=== PATIENT | female | born 1980 | race Two or more races ===

== ENCOUNTER 2021-03-11 16:00 | Observation (INO) | payer SELFPAY ==
[~2021-03-11] VITALS: Ht 152.4 cm; Wt 64.0 kg
== END 2021-03-11 17:35 | disposition home or self-care (01) ==
LOC: LDRP 16:00
PROVIDERS: ADMIT Obstetrics & Gynecology; ATTEND Obstetrics & Gynecology
DX: O42.912 Preterm premature rupture of membranes, unspecified as to length of time between rupture and onset of labor, second trimester (principal); Z3A.18 18 weeks gestation of pregnancy
CPT/HCPCS: 81002; 84112; G0378; G0379; Q0114

== ENCOUNTER 2021-05-08 13:30 | Observation (INO) | payer MEDICAID ==
[~2021-05-08] VITALS: Ht 165.1 cm; Wt 65.3 kg
[2021-05-08] MEDS: TERBUTALINE SULFATE 1 MG/ML 1ML VIAL SC SCH ×2 (15:00→15:34)
[2021-05-08] MEDS ORDERED: PREN-129 OR (15:33)
== END 2021-05-08 16:17 | disposition home or self-care (01) ==
LOC: LDRP 13:30
PROVIDERS: ADMIT Obstetrics & Gynecology; ATTEND Obstetrics & Gynecology
DX: O62.9 Abnormality of forces of labor, unspecified (principal); O26.893 Other specified pregnancy related conditions, third trimester; N89.8 Other specified noninflammatory disorders of vagina; R10.9 Unspecified abdominal pain; Z3A.28 28 weeks gestation of pregnancy
CPT/HCPCS: 59025; 76815; 81002; 96372; G0378; G0379; J3105

== ENCOUNTER 2021-05-12 11:24 | Observation (INO) | payer MEDICAID ==
[~2021-05-12] VITALS: Ht 154.9 cm; Wt 65.3 kg
[~2021-05-12 11:24] MED LIST: PREN-129 OR
[2021-05-12] MEDS ORDERED: NIF10C GT (11:52)
[2021-05-12] MEDS: TERBUTALINE SULFATE 1 MG/ML 1ML VIAL SC SCH ×2 (12:02→12:08)
== END 2021-05-12 12:42 | disposition home or self-care (01) ==
LOC: LDRP 11:24
PROVIDERS: ADMIT Obstetrics & Gynecology; ATTEND Obstetrics & Gynecology
DX: O60.03 Preterm labor without delivery, third trimester (principal); O34.63 Maternal care for abnormality of vagina, third trimester; N89.8 Other specified noninflammatory disorders of vagina; Z3A.29 29 weeks gestation of pregnancy
CPT/HCPCS: 59025; 81002; 96372; G0378; G0379; J3105

== ENCOUNTER 2021-05-19 10:24 | Observation (INO) | payer MEDICAID ==
[~2021-05-19] VITALS: Ht 152.4 cm; Wt 65.3 kg
[2021-05-19] MEDS ORDERED: NIF10C PO (11:52)
[2021-05-19] MEDS ORDERED: NIFEdipine 10 MG CAP PO ONE (16:50)
[2021-05-19] MEDS ORDERED: TERBUTALINE SULFATE 1 MG/ML 1ML VIAL SC SCH (17:00)
== END 2021-05-19 17:43 | disposition home or self-care (01) ==
LOC: LDRP 16:23
PROVIDERS: ADMIT Obstetrics & Gynecology; ATTEND Obstetrics & Gynecology
DX: O60.03 Preterm labor without delivery, third trimester (principal); O62.9 Abnormality of forces of labor, unspecified; Z3A.30 30 weeks gestation of pregnancy
CPT/HCPCS: 59025; 81002; 94760; 96372; G0378; G0379; J3105

== ENCOUNTER 2021-05-22 16:51 | Observation (INO) | payer MEDICAID ==
[~2021-05-22] VITALS: Ht 154.9 cm; Wt 65.3 kg
[~2021-05-22 16:51] MED LIST changes: +NIF10C PO
[2021-05-22] MEDS ORDERED: PROG1CAP2 VG (17:39)
[2021-05-22] MEDS ORDERED: BETAMETHASONE ACET (30mg/5ml) 5ml Vial 6mg/ml IM ONE (17:45)
[2021-05-22] MEDS ORDERED: TERBUTALINE SULFATE 1 MG/ML 1ML VIAL SC SCH (17:45)
== END 2021-05-22 19:18 | disposition home or self-care (01) ==
LOC: LDRP 16:51
PROVIDERS: ADMIT Obstetrics & Gynecology; ATTEND Obstetrics & Gynecology
DX: O60.03 Preterm labor without delivery, third trimester (principal); O62.9 Abnormality of forces of labor, unspecified; O26.893 Other specified pregnancy related conditions, third trimester; N89.8 Other specified noninflammatory disorders of vagina; Z3A.30 30 weeks gestation of pregnancy
CPT/HCPCS: 59025; 76815; 81002; 94760; 96372; G0378; G0379; J0702; J3105

== ENCOUNTER 2021-05-23 16:30 | Observation (INO) | payer MEDICAID ==
[~2021-05-23] VITALS: Ht 154.9 cm; Wt 65.3 kg
[~2021-05-23 16:30] MED LIST changes: +PROG1CAP2 VG
[2021-05-23] MEDS ORDERED: BETAMETHASONE ACET (30mg/5ml) 5ml Vial 6mg/ml IM ONE (17:00)
[2021-05-23] MEDS ORDERED: TERBUTALINE SULFATE 1 MG/ML 1ML VIAL SC SCH (17:30)
== END 2021-05-23 18:41 | disposition home or self-care (01) ==
LOC: LDRP 16:30
PROVIDERS: ADMIT Obstetrics & Gynecology; ATTEND Obstetrics & Gynecology
DX: O60.03 Preterm labor without delivery, third trimester (principal); O62.9 Abnormality of forces of labor, unspecified; O26.893 Other specified pregnancy related conditions, third trimester; R10.2 Pelvic and perineal pain; Z3A.30 30 weeks gestation of pregnancy
CPT/HCPCS: 59025; 81002; 94760; 96372; G0378; G0379; J3105

== ENCOUNTER 2021-05-25 10:16 | Observation (INO) | payer MEDICAID | END 2021-05-25 14:25 | disposition home or self-care (01) | LOC: LDRP 11:56 | PROVIDERS: ADMIT Obstetrics & Gynecology Obstetrics; ATTEND Obstetrics & Gynecology Obstetrics | DX: O62.9 Abnormality of forces of labor, unspecified (principal); O60.03 Preterm labor without delivery, third trimester; Z3A.30 30 weeks gestation of pregnancy | CPT/HCPCS: 59025; 76815; 81002; 94760; G0378; G0379 ==

== ENCOUNTER 2021-05-27 14:17 | Observation (INO) | payer MEDICAID ==
[~2021-05-27] VITALS: Ht 152.4 cm; Wt 65.3 kg
== END 2021-05-27 18:34 | disposition home or self-care (01) ==
LOC: LDRP 16:11
PROVIDERS: ADMIT Obstetrics & Gynecology; ATTEND Obstetrics & Gynecology
DX: O60.03 Preterm labor without delivery, third trimester (principal); O34.63 Maternal care for abnormality of vagina, third trimester; N89.8 Other specified noninflammatory disorders of vagina; Z3A.31 31 weeks gestation of pregnancy
CPT/HCPCS: 59025; 76818; 81002; 94760; G0378; G0379

== ENCOUNTER 2021-05-28 08:27 | Observation (INO) | payer MEDICAID ==
[~2021-05-28] VITALS: Ht 154.9 cm; Wt 66.2 kg
[2021-06-03] MEDS: TERBUTALINE SULFATE 1 MG/ML 1ML VIAL SC SCH ×2 (15:26→15:48)
== END 2021-06-03 16:58 | disposition home or self-care (01) ==
LOC: LDRP 06-03 14:42
PROVIDERS: ADMIT Obstetrics & Gynecology; ATTEND Obstetrics & Gynecology
DX: O60.03 Preterm labor without delivery, third trimester (principal); O62.9 Abnormality of forces of labor, unspecified; Z3A.32 32 weeks gestation of pregnancy
CPT/HCPCS: 59025; 81002; 94760; 96372; G0378; J3105

== ENCOUNTER 2021-06-06 15:20 | Observation (INO) | payer MEDICAID | END 2021-06-06 17:22 | disposition home or self-care (01) | LOC: LDRP 15:20 | PROVIDERS: ADMIT Obstetrics & Gynecology; ATTEND Obstetrics & Gynecology | DX: O47.03 False labor before 37 completed weeks of gestation, third trimester (principal); Z3A.32 32 weeks gestation of pregnancy | CPT/HCPCS: 59025; 81002; 94760; G0378 ==

== ENCOUNTER 2021-06-10 14:40 | Observation (INO) | payer MEDICAID ==
[2021-06-10] MEDS ORDERED: TERBUTALINE SULFATE 1 MG/ML 1ML VIAL SC SCH (15:45)
== END 2021-06-10 16:45 | disposition home or self-care (01) ==
LOC: LDRP 14:40
PROVIDERS: ADMIT Obstetrics & Gynecology; ATTEND Obstetrics & Gynecology
DX: O60.03 Preterm labor without delivery, third trimester (principal); O62.9 Abnormality of forces of labor, unspecified; Z3A.33 33 weeks gestation of pregnancy
CPT/HCPCS: 59025; 81002; 94760; 96372; G0378; G0379; J3105

== ENCOUNTER 2021-06-15 07:31 | Observation (INO) | payer MEDICAID | END 2021-06-15 16:24 | disposition home or self-care (01) | LOC: LDRP 14:43 | PROVIDERS: ADMIT Obstetrics & Gynecology Obstetrics; ATTEND Obstetrics & Gynecology Obstetrics | DX: O60.03 Preterm labor without delivery, third trimester (principal); Z3A.33 33 weeks gestation of pregnancy | CPT/HCPCS: 59025; 81002; 94760; G0378 ==

== ENCOUNTER 2021-06-18 07:27 | Observation (INO) | payer MEDICAID | END 2021-06-18 11:20 | disposition home or self-care (01) | LOC: LDRP 10:36 | PROVIDERS: ADMIT Obstetrics & Gynecology; ATTEND Obstetrics & Gynecology | DX: O60.03 Preterm labor without delivery, third trimester (principal); Z3A.34 34 weeks gestation of pregnancy | CPT/HCPCS: 59025; 81002; G0378; G0379 ==

== ENCOUNTER 2021-06-22 08:43 | Observation (INO) | payer MEDICAID | END 2021-06-22 13:08 | disposition home or self-care (01) | LOC: LDRP 12:34 | PROVIDERS: ADMIT Obstetrics & Gynecology Obstetrics; ATTEND Obstetrics & Gynecology Obstetrics | DX: O47.03 False labor before 37 completed weeks of gestation, third trimester (principal); Z3A.35 35 weeks gestation of pregnancy | CPT/HCPCS: 59025; 81002; G0378 ==

== ENCOUNTER 2021-06-25 14:25 | Observation (INO) | payer MEDICAID | END 2021-06-25 15:20 | disposition home or self-care (01) | LOC: LDRP 14:25 | PROVIDERS: ADMIT Obstetrics & Gynecology; ATTEND Obstetrics & Gynecology | DX: O60.03 Preterm labor without delivery, third trimester (principal); O24.419 Gestational diabetes mellitus in pregnancy, unspecified control; O62.9 Abnormality of forces of labor, unspecified; Z3A.35 35 weeks gestation of pregnancy | CPT/HCPCS: 59025; 81002; G0378; G0379 ==

== ENCOUNTER 2021-06-29 08:31 | Observation (INO) | payer MEDICAID | END 2021-06-29 15:56 | disposition home or self-care (01) | LOC: LDRP 14:30 | PROVIDERS: ADMIT Obstetrics & Gynecology Obstetrics; ATTEND Obstetrics & Gynecology Obstetrics | DX: O60.03 Preterm labor without delivery, third trimester (principal); Z3A.35 35 weeks gestation of pregnancy | CPT/HCPCS: 59025; 81002; 94760; G0378; G0379 ==

== ENCOUNTER 2021-07-02 13:05 | Observation (INO) | payer MEDICAID ==
[2021-07-02 15:31] LABS: Basophils # (auto) 0.1 10 ^3/uL (0-0.2); Basophils % (auto) 1.3 % (0.0-2.0); Eosinophils # (auto) 0.1 10 ^3/uL (0-0.8); Eosinophils % (auto) 1.2 % (0.0-7.0); Hematocrit 36.4 % (36.0-46.0); Hemoglobin 12.5 g/dL (12.2-16.2); Lymphocytes # (auto) 0.9 10 ^3/uL (0.4-5.4); Lymphocytes % (auto) 15.1 % (10.0-50.0); Mean Corpuscular Hemoglobin 31.5 pg (28.0-32.0); Mean Corpuscular Hgb Conc. 34.3 g/dL (32.0-36.0); Mean Corpuscular Volume 91.8 fL (80.0-100.0); Monocytes # (auto) 0.5 10 ^3/uL (0-1.3); Monocytes % (auto) 7.6 % (0.0-12.0); Neutrophils # (auto) 4.5 10 ^3/uL (1.6-8.6); Neutrophils % (auto) 74.8 % (37.0-80.0); Nucleated Red Blood Cells % 0.1 %; Red Blood Cells 3.96 10^6/uL (4.0-5.20); Red Cell Distribution Width 13.2 % (11.8-14.3)
[2021-07-02 15:45] LABS: INR 0.88 (0.9-1.15); Partial Thromboplastin Time 28.3 sec (23.6-33.0)
[2021-07-02 15:53] LABS: Albumin 2.2 g/dL (3.4-5.0); Calcium 8.1 mg/dL (8.5-10.1); Potassium 3.5 mmol/L (3.5-5.1)
[2021-07-02 15:56] LABS: Bilirubin, Total 0.2 mg/dL (0.2-1.0); Total Protein 6.3 g/dL (6.4-8.2)
[2021-07-02 16:13] LABS: Urine Bacteria MANY /hpf (None Seen); Urine Blood Negative /uL (Negative); Urine Specific Gravity 1.006 (1.001-1.035); Urine WBC 6 /hpf (0 - 5)
[2021-07-02 17:19] LABS: Protein, Urine 6.9 mg/dL (0.0-11.9)
[2021-07-03 07:06] LABS: RPR Non Reactive (Non Reactive)
[2021-07-05] MEDS ORDERED: LABE100T4 PO (11:30)
== END 2021-07-02 17:20 | disposition home or self-care (01) ==
LOC: LDRP 13:05
PROVIDERS: ADMIT Obstetrics & Gynecology; ATTEND Obstetrics & Gynecology
DX: O24.419 Gestational diabetes mellitus in pregnancy, unspecified control (principal); Z20.822 Contact with and (suspected) exposure to COVID-19; Z3A.36 36 weeks gestation of pregnancy; Z79.899 Other long term (current) drug therapy; Z98.890 Other specified postprocedural states
CPT/HCPCS: 36415; 59025; 76818; 80053; 81001; 81002; 82570; 83036; 84156; 84550; 85025; 85610; 85730; 86592; 87426; G0378

== ENCOUNTER 2021-07-08 09:24 | Observation (INO) | payer MEDICAID ==
[~2021-07-08 09:24] MED LIST changes: +LABE100T4 PO; -NIF10C PO; -PROG1CAP2 VG
== END 2021-07-08 11:47 | disposition home or self-care (01) ==
LOC: LDRP 09:24
PROVIDERS: ADMIT Obstetrics & Gynecology; ATTEND Obstetrics & Gynecology
DX: O13.3 Gestational [pregnancy-induced] hypertension without significant proteinuria, third trimester (principal); O99.891 Other specified diseases and conditions complicating pregnancy; M54.59 Other low back pain; Z3A.37 37 weeks gestation of pregnancy
CPT/HCPCS: 59025; 76818; 81002; 94760; G0378

== ENCOUNTER 2021-07-11 08:08 | Observation (INO) | payer MEDICAID | END 2021-07-11 10:35 | disposition home or self-care (01) | LOC: LDRP 08:08 | PROVIDERS: ADMIT Obstetrics & Gynecology; ATTEND Obstetrics & Gynecology | DX: O13.3 Gestational [pregnancy-induced] hypertension without significant proteinuria, third trimester (principal); Z3A.37 37 weeks gestation of pregnancy | CPT/HCPCS: 59025; 76818; 81002; 94760; G0378; G0379 ==

== ENCOUNTER 2021-07-14 08:29 | Observation (INO) | payer MEDICAID ==
[~2021-07-14] VITALS: Ht 152.4 cm; Wt 70.3 kg
== END 2021-07-14 18:40 | disposition home or self-care (01) ==
LOC: LDRP 16:13
PROVIDERS: ADMIT Obstetrics & Gynecology; ATTEND Obstetrics & Gynecology
DX: O36.8930 Maternal care for other specified fetal problems, third trimester, not applicable or unspecified (principal); O14.93 Unspecified pre-eclampsia, third trimester; Z3A.38 38 weeks gestation of pregnancy
CPT/HCPCS: 59025; 76818; 81002; 94760; G0378

== ENCOUNTER 2021-07-17 11:41 | Observation (INO) | payer MEDICAID ==
[~2021-07-17] VITALS: Ht 152.4 cm; Wt 69.9 kg
[~2021-07-17 11:41] MED LIST changes: -LABE100T4 PO
[2021-07-17] MEDS ORDERED: LABE100T4 PO (16:46)
[2021-07-17 17:29] LABS: Urine Bacteria MOD /hpf (None Seen); Urine Blood Negative /uL (Negative); Urine Specific Gravity 1.017 (1.001-1.035); Urine WBC 2 /hpf (0 - 5)
[2021-07-17 18:15] LABS: Basophils # (auto) 0 10 ^3/uL (0-0.2); Basophils % (auto) 0.4 % (0.0-2.0); Eosinophils # (auto) 0.1 10 ^3/uL (0-0.8); Eosinophils % (auto) 1.4 % (0.0-7.0); Hematocrit 36.2 % (36.0-46.0); Hemoglobin 12.3 g/dL (12.2-16.2); Lymphocytes # (auto) 1.3 10 ^3/uL (0.4-5.4); Mean Corpuscular Hemoglobin 31.5 pg (28.0-32.0); Mean Corpuscular Hgb Conc. 33.9 g/dL (32.0-36.0); Mean Corpuscular Volume 92.9 fL (80.0-100.0); Monocytes # (auto) 0.4 10 ^3/uL (0-1.3); Monocytes % (auto) 6.9 % (0.0-12.0); Neutrophils # (auto) 4.3 10 ^3/uL (1.6-8.6); Neutrophils % (auto) 70.3 % (37.0-80.0); Nucleated Red Blood Cells % 0.2 %; Red Cell Distribution Width 13.3 % (11.8-14.3); White Blood Cell 6.1 10^3/uL (4.4-10.8)
[2021-07-17 18:25] LABS: Albumin 2.2 g/dL (3.4-5.0); Calcium 8.3 mg/dL (8.5-10.1); Potassium 3.9 mmol/L (3.5-5.1)
[2021-07-17 18:29] LABS: Bilirubin, Total 0.1 mg/dL (0.2-1.0); Total Protein 6.1 g/dL (6.4-8.2); Uric Acid 4.4 mg/dL (2.6-6.0)
[2021-07-17 18:31] LABS: Alcohol, Urine < 3.0 mg/dL (0-10); Amphetamine Screen, Urine NEGATIVE (NEGATIVE); Barbiturate Scree,Urine NEGATIVE (NEGATIVE); Benzodiazephine Screen, Urine NEGATIVE (NEGATIVE); Cannabinoid Screen, Urine NEGATIVE (NEGATIVE); Cocaine Screen, Urine NEGATIVE (NEGATIVE); Opiate Scree,Urine NEGATIVE (NEGATIVE); Phencyclidine Screen, Urine NEGATIVE (NEGATIVE)
[2021-07-17 18:38] LABS: INR 0.91 (0.9-1.15); Partial Thromboplastin Time 27.4 sec (23.6-33.0)
[2021-07-17 18:40] LABS: Creatinine, Urine 82 mg/dL (30.0-125.0); Protein, Urine 22.2 mg/dL (0.0-11.9)
== END 2021-07-17 20:00 | disposition home or self-care (01) ==
LOC: LDRP 15:40
PROVIDERS: ADMIT Obstetrics & Gynecology; ATTEND Obstetrics & Gynecology
DX: O13.3 Gestational [pregnancy-induced] hypertension without significant proteinuria, third trimester (principal); O09.523 Supervision of elderly multigravida, third trimester; O26.893 Other specified pregnancy related conditions, third trimester; R10.30 Lower abdominal pain, unspecified; Z3A.38 38 weeks gestation of pregnancy; Z79.899 Other long term (current) drug therapy
CPT/HCPCS: 59025; 76818; 80053; 80307; 81001; 82570; 84156; 84550; 85362; 85379; 85610; 85730; G0378; G0379; 36415; 82575; 85025

== ENCOUNTER 2021-07-19 14:25 | Observation (INO) | payer MEDICAID ==
[~2021-07-19 14:25] MED LIST changes: +LABE100T4 PO
== END 2021-07-19 15:57 | disposition home or self-care (01) ==
LOC: LDRP 14:25
PROVIDERS: ADMIT Obstetrics & Gynecology; ATTEND Obstetrics & Gynecology
DX: O62.9 Abnormality of forces of labor, unspecified (principal); O13.3 Gestational [pregnancy-induced] hypertension without significant proteinuria, third trimester; Z3A.38 38 weeks gestation of pregnancy
CPT/HCPCS: 59025; 81002; G0378; G0379

== ENCOUNTER 2021-07-21 10:19 | Inpatient (IN) | payer MEDICAID ==
[~2021-07-21] VITALS: Ht 152.4 cm; Wt 69.9 kg
[2021-07-21 15:43] LABS: Basophils # (auto) 0.1 10 ^3/uL (0-0.2); Basophils % (auto) 1.4 % (0.0-2.0); Eosinophils # (auto) 0.1 10 ^3/uL (0-0.8); Eosinophils % (auto) 2.2 % (0.0-7.0); Hematocrit 34.6 % (36.0-46.0); Hemoglobin 11.9 g/dL (12.2-16.2); Lymphocytes # (auto) 1.1 10 ^3/uL (0.4-5.4); Lymphocytes % (auto) 21.1 % (10.0-50.0); Mean Corpuscular Hemoglobin 31.7 pg (28.0-32.0); Mean Corpuscular Hgb Conc. 34.4 g/dL (32.0-36.0); Mean Corpuscular Volume 92.3 fL (80.0-100.0); Monocytes # (auto) 0.4 10 ^3/uL (0-1.3); Neutrophils # (auto) 3.5 10 ^3/uL (1.6-8.6); Neutrophils % (auto) 68.3 % (37.0-80.0); Nucleated Red Blood Cells % 0.1 %; Red Blood Cells 3.74 10^6/uL (4.0-5.20); Red Cell Distribution Width 13.5 % (11.8-14.3); White Blood Cell 5.1 10^3/uL (4.4-10.8)
[2021-07-21 15:51] LABS: Albumin 2.3 g/dL (3.4-5.0); Calcium 8.4 mg/dL (8.5-10.1); Potassium 3.9 mmol/L (3.5-5.1)
[2021-07-21 15:54] LABS: BUN/Creatinine Ratio 21.2; Bilirubin, Total 0.1 mg/dL (0.2-1.0); Total Protein 5.8 g/dL (6.4-8.2)
[2021-07-21 16:13] LABS: INR 0.93 (0.9-1.15); Partial Thromboplastin Time 27.5 sec (23.6-33.0)
[2021-07-21 16:44] LABS: Urine Bacteria MANY /hpf (None Seen); Urine Blood Negative /uL (Negative); Urine Specific Gravity 1.011 (1.001-1.035); Urine WBC 5 /hpf (0 - 5)
[2021-07-21] MEDS ORDERED: LIDOCAINE 2%HCL (LOCAL ANESTH.) INJ 20ML MDV IJ PRN (16:45)
[2021-07-21] MEDS ORDERED: PROMETHAZINE HCL 25 MG/ML 1ML IV PRN (16:45)
[2021-07-21] MEDS ORDERED: BUTORPHANOL TARTRATE 2 MG/1 ML VIAL IV PRN ×2 (16:45)
[2021-07-21] MEDS ORDERED: LACT. RINGERS/OXYTOCIN 20UNITS 500 ML IV ONE ×2 (16:45→17:15)
[2021-07-21] MEDS ORDERED: PHISODERM TOP SOLN 240ML BTL TOP PRN (16:45)
[2021-07-21 16:48] LABS: Alcohol, Urine < 3.0 mg/dL (0-10); Amphetamine Screen, Urine NEGATIVE (NEGATIVE); Barbiturate Scree,Urine NEGATIVE (NEGATIVE); Benzodiazephine Screen, Urine NEGATIVE (NEGATIVE); Cannabinoid Screen, Urine NEGATIVE (NEGATIVE); Cocaine Screen, Urine NEGATIVE (NEGATIVE); Opiate Scree,Urine NEGATIVE (NEGATIVE); Phencyclidine Screen, Urine NEGATIVE (NEGATIVE); Protein, Urine 14.8 mg/dL (0.0-11.9)
[2021-07-21] MEDS: LACTATED RINGER'S 1,000 ML IV SCH (17:27)
[2021-07-21] MEDS: hydrALAZINE HCL 20 MG/ML VL IV PRN (17:28)
[2021-07-21] MEDS: DERMOPLAST 60ML BOTTLE TOP PRN (19:05)
[2021-07-21] MEDS: miSOPROStol 50 MCG per PRE-CUT 1/2 TAB PO PRN ×2 (19:05→23:00)
[2021-07-21] MEDS: WITCH HAZEL-GLYCERIN PAD TOP PRN (19:06)
[2021-07-21] MEDS: LABETALOL HCL 200 MG TAB PO SCH (21:57)
[2021-07-22] MEDS: LACTATED RINGER'S 1,000 ML IV SCH ×3 (01:16→17:18)
[2021-07-22] MEDS: miSOPROStol 50 MCG per PRE-CUT 1/2 TAB PO PRN (03:17)
[2021-07-22] MEDS: hydrALAZINE HCL 20 MG/ML VL IV PRN (06:25)
[2021-07-22] MEDS ORDERED: miSOPROStol 100 mcg TAB PR PRN (07:45)
[2021-07-22] MEDS ORDERED: miSOPROStol 100 mcg TAB SL PRN (07:45)
[2021-07-22] MEDS ORDERED: METHYLERGONOVINE MALEATE 0.2 MG/ML AMP IM PRN (07:45)
[2021-07-22] MEDS ORDERED: LACT. RINGERS/OXYTOCIN 20UNITS 1,000 ML IV SCH (07:45)
[2021-07-22 08:06] LABS: RPR Non Reactive (Non Reactive)
[2021-07-22] MEDS: LABETALOL HCL 200 MG TAB PO SCH ×2 (10:31→22:00)
[2021-07-22] MEDS ORDERED: LIDOCAINE 2%HCL (LOCAL ANESTH.) INJ 20ML MDV IJ PRN (14:45)
[2021-07-22] MEDS ORDERED: CARBOPROST TROMETHAMINE 250 MCG/1ML VIAL IM ONE (21:57)
[2021-07-22] MEDS: ceFAZolin 1GM/50ML 50 ML IV SCH (23:25)
[2021-07-23] MEDS ORDERED: IBUPROFEN 800 MG TAB PO ONE (00:38)
[2021-07-23] MEDS ORDERED: LACT. RINGERS/OXYTOCIN 20UNITS 1,000 ML IV SCH (01:15)
[2021-07-23 03:00] VITALS: BP 113/86
[2021-07-23] MEDS ORDERED: ACETAMINOPHEN 325 MG TAB PO PRN (03:15)
[2021-07-23] MEDS ORDERED: ONDANSETRON ODT 4 MG TAB PO PRN (03:15)
[2021-07-23] MEDS: IBUPROFEN 800 MG TAB PO SCH ×2 (03:38→08:59)
[2021-07-23] MEDS: ceFAZolin 1GM/50ML 50 ML IV SCH ×2 (10:50→18:40)
[2021-07-23] MEDS: LABETALOL HCL 200 MG TAB PO SCH (10:50)
[2021-07-23] MEDS: IBUPROFEN 600 MG TAB PO PRN (18:40)
[2021-07-23 19:00] VITALS: BP 130/79
[2021-07-23] MEDS ORDERED: DOCUSATE SOD 100 MG CAP PO SCH (22:00)
[2021-07-23 23:00] VITALS: BP 114/59
[2021-07-24] MEDS: ceFAZolin 1GM/50ML 50 ML IV SCH (02:51)
[2021-07-24 03:00] VITALS: BP 117/53
[2021-07-24 07:00] VITALS: BP 106/59
[2021-07-24] MEDS: IBUPROFEN 600 MG TAB PO PRN (09:23)
[2021-07-24] MEDS: WITCH HAZEL-GLYCERIN PAD TOP PRN (09:23)
[2021-07-24] MEDS: DERMOPLAST 60ML BOTTLE TOP PRN (09:23)
== END 2021-07-24 10:05 | disposition home or self-care (01) | DRG 560 ==
LOC: LDRP 14:10 → OBSVTOIN 16:10 → LDRP 16:14
PROVIDERS: ADMIT Obstetrics & Gynecology; ATTEND Obstetrics & Gynecology
PROC: 0KQM0ZZ Repair Perineum Muscle, Open Approach (ICD-10-PCS; principal; 2021-07-22)
PROC: 10E0XZZ Delivery of Products of Conception, External Approach (ICD-10-PCS; 2021-07-22)
DX: O69.81X0 Labor and delivery complicated by cord around neck, without compression, not applicable or unspecified (principal); Z37.0 Single live birth; O16.4 Unspecified maternal hypertension, complicating childbirth; O14.94 Unspecified pre-eclampsia, complicating childbirth; Z20.822 Contact with and (suspected) exposure to COVID-19; O70.1 Second degree perineal laceration during delivery; O76 Abnormality in fetal heart rate and rhythm complicating labor and delivery; Z3A.39 39 weeks gestation of pregnancy
CPT/HCPCS: 36415; 59025; 59409; 76818; 80053; 80307; 81001; 81002; 82570; 84156; 84550; 85025; 85610; 85730; 86592; 86850; 86900; 86901; 87426; 94760; 94762; 96360; 96361; 96365; 96366; 96374; 96375; G0378; J0690; J2590